=== PATIENT | female | born 1955 | race African-American/Black ===

== ENCOUNTER 2021-04-03 16:23 | Emergency (ER) | payer MEDICARE ==
--- NOTE | 2021-04-03 16:36 | Emergency Department Report ---
HPI - General Time Seen by Provider: 04/03/21 16:29 - HPI HPI: 65-year-old female presents to the emergency department via EMS from home in cardiac arrest. Apparently the patient was found unresponsive by family but given her size and condition they were unable to get her to the floor to start CPR. EMS arrived about 20 minutes later and began ACLS protocol as much as possible. They intubated the patient with a 7.0 endotracheal tube and began chest compressions, but were unable to establish any peripheral or intraosseous line. She was given 1 dose of epinephrine through the endotracheal tube just prior to presentation. She was found to be in asystole and remained so t hroughout her EMS course, which lasted about 30 minutes prior to presentation to the emergency department. She apparently has a past medical history of COPD and CHF. EMS tells me that she was just recently discharged from another hospital on the fourth of this month after being admitted there for respiratory issues and hypoxia. ED Review of Systems ROS: Stated complaint: CARDIAC ARREST Other details as noted in HPI Comment: Unobtainable due to pts medical conditions Physical Exam - Physical Exam Physical Exam: GENERAL: Patient is ill-appearing and unresponsive. HENT: Normocephalic. Atraumatic. EYES: Pupils are fixed and dilated. NECK: Supple. Trachea appears midline. CHEST/LUNGS: There are no spontaneous respirations. HEART/CARDIOVASCULAR: There are no spontaneous heart sounds. ABDOMEN: Abdomen is soft. Severe morbid obesity. SKIN: Skin is cool but dry. NEURO: Unresponsive. Does not withdraw to painful stimuli. Does not follow any commands. MUSCULOSKELETAL: There is no obvious deformity. There is no evidence of acute injury. No palpable femoral or radial pulses. - Procedure Description Procedures done: ACLS: I supervised ACLS protocol for a total of 10 minutes. The patient presented in cardiac arrest and asystole, intubated. Chest compressions were continued as the patient was moved from the EMS gurney to the bed in room #22. We then continue chest compressions on this bed as well as the patient was placed on the zole monitor, pulse oximetry, and a peripheral IV was placed. She received bag valve ventilation through the endotracheal tube in place. Once we established the 18-gauge IV in the left upper extremity the patient was given epinephrine and sodium bicarbonate. During the first pulse/rhythm check the patient was in asystole. The patient then received another dose of epinephrine and a dose of calcium. During the second pulse and rhythm check the patient was still in asystole. At this point the patient has been "down", hypoxic/anoxic, for more than 50 minutes. I took the bedside ultrasound and there was absolutely no movement of the heart, 0 squeeze., Time of was called at 1630. ED Medical Decision Making - Medical Decision Making This patient presented in cardiac arrest. She had been at home for about 20 minutes prior to EMS arrival. EMS intubated the patient and began bag valve ventilation, chest compressions, and gave 1 dose of epinephrine through the endotracheal tube as they were unable to establish a peripheral IV or intraosseous line. The EMS course was about 30 minutes prior to presentation in the emergency department. They continue chest compressions as we transfer the patient over to the bed from the EMS gurney. We continued chest compressions there and bag valve ventilation through the endotracheal tube. We established a peripheral IV in the left upper extremity. The patient had 2 further ACLS rounds including epinephrine and sodium bicarbonate during round 1, and epin ephrine and calcium on round 2. For each pulse and rhythm check the patient remained in asystole. Overall the patient has been unresponsive, hypoxic/anoxic for close to 1 hour. There are no spontaneous heart or breath sounds. Pupils are fixed and dilated. I took the bedside ultrasound and there was absolutely no movement, squeeze of the heart. Time of was called at 1630. Patient's daughter was notified of her expiration and given a chance to come back and see her. The daughter says that she has been going in and out between multiple different hospitals including [facility] and [place] for "the same thing." Critical care attestation.: If time is entered above; I have spent that time in minutes in the direct care of this critically ill patient, excluding procedure time. ED Disposition Clinical Impression: Cardiac arrest Acute respiratory failure Qualifiers: Respiratory failure complication: unspecified whether with hypoxia or hypercapnia Qualified Code(s): J96.00 - Acute respiratory failure, unspecified whether with hypoxia or hypercapnia Disposition: 20 Is pt being admited?: No Time of Disposition: 17:45
[2021-04-03] MEDS ORDERED: SODIUM BICARB 8.4% 50 MEQ/50 ML SYRINGE IV ONE (22:45)
[2021-04-03] MEDS ORDERED: CALCIUM CHLORIDE 1,000 MG/10 ML SYRINGE IV ONE (22:45)
== END 2021-04-03 20:59 ==
LOC: ED 16:23
DX: I46.9 Cardiac arrest, cause unspecified (principal); J96.00 Acute respiratory failure, unspecified whether with hypoxia or hypercapnia
CPT/HCPCS: 92950; 99285; J3490